=== PATIENT | male | born 1980 | race African-American/Black ===

== ENCOUNTER 2018-06-24 22:59 | Emergency (ER) | payer MEDICAID ==
[~2018-06-24] VITALS: Ht 170.2 cm; Wt 79.0 kg
[2018-06-25 02:00] VITALS: BP 138/88
== END 2018-06-25 02:15 | disposition home or self-care (01) ==
LOC: ER 22:59
DX: M76.61 Achilles tendinitis, right leg (principal); R20.2 Paresthesia of skin; F12.10 Cannabis abuse, uncomplicated; Z88.0 Allergy status to penicillin
CPT/HCPCS: 99282

== ENCOUNTER 2022-06-07 15:26 | Emergency (ER) | payer MEDICAID ==
[~2022-06-07] VITALS: Ht 167.6 cm; Wt 80.0 kg
[2022-06-07 15:29] VITALS: BP 131/85
[2022-06-07] MEDS ORDERED: BO1 TP (17:23)
[2022-06-07] MEDS ORDERED: CLIN-194 MT (17:23)
== END 2022-06-07 17:48 | disposition home or self-care (01) ==
LOC: ER 15:26
DX: S01.81XA Laceration without foreign body of other part of head, initial encounter (principal); F12.90 Cannabis use, unspecified, uncomplicated; Z68.28 Body mass index [BMI] 28.0-28.9, adult; Z88.0 Allergy status to penicillin; Y04.0XXA Assault by unarmed brawl or fight, initial encounter; Y93.89 Activity, other specified; Y92.89 Other specified places as the place of occurrence of the external cause; Y99.8 Other external cause status
CPT/HCPCS: 12011; 99282; 99283

== ENCOUNTER 2022-11-08 00:48 | Emergency (ER) | payer MEDICAID ==
[~2022-11-08] VITALS: Ht 167.6 cm; Wt 80.0 kg
[~2022-11-08 00:48] MED LIST: BO1 TP; CLIN-194 MT
[2022-11-08 00:50] VITALS: O2SAT 100
[2022-11-08] MEDS ORDERED: ONDANSETRON HCL 4MG/2ML INJ IV STA (00:50)
[2022-11-08] MEDS ORDERED: MORPHINE SULFATE 4 MG/ML CPJ (NOT FOR IM USE) IV STA (00:50)
[2022-11-08] MEDS ORDERED: TETANUS, DIPHTHERIA, PERTUSSIS VAC/PF 0.5ML (>10YR OLD) IM ONE (01:00)
[2022-11-08] MEDS ORDERED: SODIUM CHLORIDE 0.9% 1,000 ML IV ONE (01:00)
[2022-11-08 01:14] LABS: BASOPHILS % 0.8 % (0.0-2.0); EOSINOPHILS % 7.1 % (0.0-5.0); HEMOGLOBIN. 13.1 g/dL (14.0-18.0); LYMPHOCYTES % 50.4 % (20.0-50.0); MEAN CORPUSCULAR HEMOGLOBIN 29.3 pg (28.0-32.0); MEAN CORPUSCULAR HGB CONC 32.9 g/dL (31.0-37.0); MEAN CORPUSCULAR VOLUME 89.1 fL (80.0-94.0); MEAN PLATELET VOLUME 7.4 fl (7.4-10.4); NEUTROPHILS % 31.7 % (40.0-76.0); PLATELET 226 x1000/uL (130-400); RED BLOOD CELL COUNT 4.48 mill/uL (4.7-6.1); RED CELL DISTRIBUTION WIDTH 14.4 % (11.6-14.6); WHITE BLOOD COUNT 5.6 x1000/uL (4.5-11.0)
[2022-11-08 01:21] LABS: CHLORIDE 111 mEq/L (98-107); INDEX HEMOLYSI 1 (1-3); INDEX ICTERIC 1 (1-4); INDEX LIPEMIC 1 (1-3); POTASSIUM 3.8 mEq/L (3.5-5.1); SODIUM 140 mEq/L (136-145)
[2022-11-08 01:30] LABS: ALANINE AMINOTRANSFERASE 35 IU/L (13-61); ALBUMIN 3.8 g/dL (3.4-5.0); ASPARTATE AMINOTRANSFERASE 27 IU/L (15-37); BILIRUBIN TOTAL 0.3 mg/dL (0.1-1.0); CALCIUM 8.1 mg/dL (8.5-10.1); CARBON DIOXIDE 23 mEq/L (21-32); CREATININE 0.9 mg/dL (0.6-1.3); GLUCOSE 119 mg/dL (70-105); PROTEIN TOTAL 7.2 g/dL (6.0-8.3); UREA NITROGEN BLOOD 9 mg/dL (7-21)
[2022-11-08 01:58] LABS: LACTIC ACID 2.2 mmol/L (0.4-2.0)
[2022-11-08] MEDS ORDERED: LIDOCAINE HCL 1% 20ML VIAL (Pyxis) INJ INFIL ONE (02:00)
[2022-11-08 02:33] LABS: PROTHROMBIN TIME 10.7 sec (9.6-11.0)
[2022-11-08] MEDS ORDERED: CLINDAMYCIN 900 MG in DEXTROSE 5% WATER 50 ML IV ONE (03:30)
[2022-11-08] MEDS ORDERED: CLINDAMYCIN IN 0.9 % SOD CHLOR 50 ML IV NR (03:45)
[2022-11-08 05:00] VITALS: TEMP 98.4
[2022-11-08] MEDS ORDERED: MORPHINE SULFATE 4 MG/ML CPJ (NOT FOR IM USE) IV NR (06:00)
[2022-11-08 06:45] VITALS: BP 112/70; PULSE 64; RESP 18
== END 2022-11-08 07:30 | disposition short-term general hospital (02) ==
LOC: ER 00:48 → CANBEDREQ 19:55
DX: S62.613A Displaced fracture of proximal phalanx of left middle finger, initial encounter for closed fracture (principal); F12.10 Cannabis abuse, uncomplicated; Z00.00 Encounter for general adult medical examination without abnormal findings; Z88.0 Allergy status to penicillin; W34.00XA Accidental discharge from unspecified firearms or gun, initial encounter; Y93.89 Activity, other specified; Y92.89 Other specified places as the place of occurrence of the external cause; Y99.8 Other external cause status
CPT/HCPCS: 99285; 26750; 96365; 96375; 80053; 83605; 83690; 85025; 85610; 86850; 86900; 86901; 36415; 73130; 90715; 90471; 96376; J3490 ×2; J2405; J2270; J7030; J7060